=== PATIENT | male | born 1960 | race Caucasian/White ===

== ENCOUNTER → 2023-04-13 | Outpatient (CLI) | payer OTHER ==
[2023-04-13 12:26] LABS: Source, Urine Clean Catch
[2023-04-13 13:06] LABS: Appearance, Urine Hazy (Clear); Bilirubin, Urine Neg (Neg); Blood, Urine 1+ (Neg); Glucose Qualitative, Urine Neg (Neg); Ketones, Urine Neg (Neg); Leukocyte Esterase, Urine 2+ (Neg); Nitrite, Urine Neg (Neg); Protein, Urine Neg (Neg); Specific Gravity, Urine 1.015 (1.003-1.022); Urobilinogen, Urine NORM (Normal)
[2023-04-13 13:17] LABS: Color, Urine Pale Yellow (P-Yellow)
[2023-04-13 13:18] LABS: Amorphous Light (0-Heavy); Bacteria Many /hpf; Squamous Epithelial Cells Few /hpf (Few)
== END | disposition home or self-care (01) ==
LOC: LAB 12:24 → LAB SHORT 12:24
PROVIDERS: Registered Nurse
DX: N30.01 Acute cystitis with hematuria (principal); E78.2 Mixed hyperlipidemia
CPT/HCPCS: 81001; 87077; 87086; 87186